=== PATIENT | female | born 1945 | race Caucasian/White ===

== ENCOUNTER 2016-04-28 16:28 | Inpatient (IN) | payer MEDICARE, OTHER ==
[~2016-04-28] VITALS: Ht 154.9 cm; Wt 79.3 kg
[2016-04-28] MEDS ORDERED: SODIUM CHLORIDE FLUSH 3 ML SYR IV PRN (17:20)
[2016-04-28] MEDS ORDERED: ACETAMINOPHEN 500 MG TAB (TYLENOL) PO ONE (17:20)
[2016-04-28] MEDS ORDERED: SODIUM CHLORIDE FLUSH 10 ML SYR IV PRN (17:20)
[2016-04-28 17:34] LABS: MEAN CORPUSCULAR HEMOGLOBIN 29.6 PG (26.0-34.0); MEAN CORPUSCULAR HGB CONC 35.1 g/dL (31.0-37.0); MEAN CORPUSCULAR VOLUME 84 FL (80-100); MEAN PLATELET VOLUME 12.2 FL (6.0-9.5); PLATELET COUNT 186 10^3uL (150-450); WHITE BLOOD COUNT 7.06 10^3uL (4.0-11.0)
[2016-04-28 17:41] LABS: ALBUMIN 3.6 g/dL (3.4-5.0); ANION GAP 18.8 MEQ/L (3-15); TOTAL PROTEIN 6.7 g/dL (6.4-8.5)
[2016-04-28 18:12] LABS: BAND NEUTROPHILS % 5 % (0-6); EOSINOPHILS % 0 % (0-4); LYMPHOCYTES # 1.4 #; MONOCYTES # 0.5 #; MONOCYTES % 7 % (3-11); RBC MORPH NORMAL (NORMAL); SEGMENTED NEUTROPHILS % 65 % (51-67); TOTAL CELLS COUNTED 100
--- NOTE | 2016-04-28 18:29 | NUR ---
to ct at 1814
[2016-04-28] MEDS ORDERED: INSULIN REGULAR 1 UNIT/0.01 ML DOSE IV ONE (19:25)
[2016-04-28 19:38] LABS: BILIRUBIN,URINE Negative (Negative); CLARITY,URINE Clear; COLOR,URINE Yellow; GLUCOSE, URINE (UA) 3+ (Negative); LEUKOCYTE ESTERASE ,URINE Trace (Negative); PH,URINE 5.5 (5.0 - 8.0); UROBILINOGEN,URINE 0.2 mg/dL (0.2-1.0)
[2016-04-28 19:47] LABS: URINE CENTRIFUGED VOLUME 12 mL
--- NOTE | 2016-04-28 21:32 | NUR ---
NOTIFIED MAINTENANCE TECHNICIAN 3RD SHIFT OF ADMIT
[2016-04-28] MEDS ORDERED: DOCUSATE SODIUM 100 MG (COLACE) CAP PO PRN (21:40)
[2016-04-28] MEDS ORDERED: POTASSIUM CL IVPB 50 ML IV PRN (21:40)
[2016-04-28] MEDS ORDERED: GLUCAGON EMERGENCY 1 MG/KIT IM PRN (21:40)
[2016-04-28] MEDS ORDERED: POLYETHYLENE GLYCOL 17 GM (MIRALAX) PACKET PO PRN (21:40)
[2016-04-28] MEDS ORDERED: PROMETHAZINE HCL INJ 12.5 MG in SODIUM CHLORIDE 25 ML IV PRN (21:40)
[2016-04-28] MEDS ORDERED: DEXTROSE ORAL GEL (GLUTOSE 40%) 15 GM TUBE PO PRN (21:40)
[2016-04-28] MEDS ORDERED: INSULIN REGULAR VIAL 100 UNIT in SODIUM CHLORIDE 100 ML IV SCH (21:40)
[2016-04-28] MEDS ORDERED: ACETAMINOPHEN 325 MG TAB (TYLENOL) PO PRN (21:40)
[2016-04-28] MEDS ORDERED: CALCIUM CARBONATE CHEWABLE 300 MG (TUMS) TABLET PO PRN (21:40)
[2016-04-28] MEDS ORDERED: IBUPROFEN 600 MG (MOTRIN) TAB PO PRN (21:40)
[2016-04-28] MEDS ORDERED: MAG HYDROX/AL HYDROX/SIMETH 200-200-20/5 ML (MAG-AL PLUS) 30 ML UDC PO PRN (21:40)
[2016-04-28] MEDS ORDERED: morphine INJ 4 MG/ML 1 ML SYRINGE IV PRN (21:40)
[2016-04-28] MEDS ORDERED: ONDANSETRON 4 MG (ZOFRAN) ORAL DISSOLVE TAB PO PRN (21:40)
[2016-04-28] MEDS ORDERED: MAGNESIUM HYDROXIDE 80MG/ML (MILK OF MAGNESIA) 30 ML UDC PO PRN (21:40)
[2016-04-28] MEDS ORDERED: ONDANSETRON 2 MG/ML (Z0FRAN) 2 ML VIAL IV PRN (21:40)
[2016-04-28] MEDS ORDERED: DEXTROSE 50% 25 GM/50 ML SYRINGE IV PRN ×3 (21:40)
[2016-04-28] MEDS ORDERED: SODIUM CHLORIDE 100 ML ONE (22:02)
[2016-04-28] MEDS ORDERED: INSULIN REGULAR 1 UNIT/0.01 ML DOSE ONE (22:04)
[2016-04-28 22:15] VITALS: BP 130/65
--- NOTE | 2016-04-28 22:15 | NUR ---
Pt admitted to room 342 for DKA and Influenza B from ER. Pt transferred to room via wheelchair. Pt was able to transfer to bed with minimal assist. Pt is alert and oriented, reports general discomfort all over from a recent fall on Wednesday. Pt is accompanied by daughter. Dr. Garner arrives shortly after admission to see pt. BGM obtained at admission time was 334. Insulin drip initiated at 11 units/hr.
[2016-04-28] MEDS ORDERED: ALBUTEROL 0.083% NEB SOLUTION 2.5 MG/3 ML VIAL INH PRN (22:45)
[2016-04-28 23:00] VITALS: BP 119/52
[2016-04-28 23:20] VITALS: BP 119/52
[2016-04-29] VITALS (15 sets, daily range): BP systolic 92–137; BP diastolic 44–76
[2016-04-29] MEDS: D5 1/2 NS W/KCL 20 MEQ/L 1,000 ML IV SCH ×2 (00:39→05:46)
--- NOTE | 2016-04-29 00:45 | NUR ---
Pt chooses to have a Doe catheter rather than use a bedpan. States she also has some incontinence and wears a pad in her underwear. Doe catheter inserted using sterile technique with no difficulties. Return of clear yellow urine, approximately 300 cc. Pt tolerated well. Denied other needs.
[2016-04-29 01:27] LABS: ALBUMIN 2.7 g/dL (3.4-5.0); PHOSPHORUS 2.1 mg/dL (2.4-4.9)
[2016-04-29] MEDS ORDERED: POTASSIUM PHOSPHATE 15 MM in SODIUM CHLORIDE 250 ML IV ONE (02:00)
[2016-04-29] MEDS ORDERED: GLUCAGON EMERGENCY 1 MG/KIT IM PRN ×2 (02:05→09:17)
[2016-04-29] MEDS ORDERED: DEXTROSE ORAL GEL (GLUTOSE 40%) 15 GM TUBE PO PRN ×2 (02:05→08:55)
[2016-04-29] MEDS ORDERED: DEXTROSE 50% 25 GM/50 ML SYRINGE IV PRN ×4 (02:05→09:16)
[2016-04-29 04:47] LABS: ALBUMIN 2.6 g/dL (3.4-5.0); ANION GAP 9.6 MEQ/L (3-15); PHOSPHORUS 3.5 mg/dL (2.4-4.9)
[2016-04-29] MEDS ORDERED: PANTOPRAZOLE 40 MG (PROTONIX) TAB PO SCH (07:00)
--- NOTE | 2016-04-29 07:15 | NUR ---
Reports "torture due to all the lines - slept poorly" - see ICU assessment - on bedpan for BM "not suppose to be out of bed that is what Dr Garner said"
[2016-04-29] MEDS ORDERED: INSULIN LISPRO 1 UNIT/0.01 ML (HUMALOG) DOSE SC SCH ×2 (07:30→08:00)
--- NOTE | 2016-04-29 07:52 | NUR ---
Pt instructed on Incentive Spirometry, She is reluctant due to her expecting a cough with deep breathing which does happen with each attempt in the IS. 1500 ml x 3 with good effort, moderate technique and no breath hold. SPO2 95% on 2 l/min NC.
--- NOTE | 2016-04-29 07:55 | NUR ---
Pt instructed on Incentive Spirometry. She has a good understanding of the technique and reason behind therapy, but is reluctant to do it because if induced cough. Performed x5 x 1500 ml with cough stopping inhalation each time.
[2016-04-29] MEDS ORDERED: NS FLUSH 10 ML PRN IV (08:00)
[2016-04-29] MEDS ORDERED: NS FLUSH 3 ML PRN IV (08:00)
[2016-04-29 08:17] LABS: BASOPHILS % (AUTO) 0 % (0-2); EOSINOPHILS % (AUTO) 0 % (0-4); LYMPHOCYTES # (AUTO) 1.9 X10^3; MEAN CORPUSCULAR HEMOGLOBIN 29.8 PG (26.0-34.0); MEAN CORPUSCULAR HGB CONC 34.5 g/dL (31.0-37.0); MEAN CORPUSCULAR VOLUME 86 FL (80-100); MEAN PLATELET VOLUME 10.6 FL (6.0-9.5); MONOCYTES # (AUTO) 0.4 X10^3; MONOCYTES % (AUTO) 8 % (3-11); NEUTROPHILS # (AUTO) 2.8 X10^3; NEUTROPHILS % (AUTO) 55 % (51-67); PLATELET COUNT 153 10^3uL (150-450); WHITE BLOOD COUNT 5.05 10^3uL (4.0-11.0)
[2016-04-29 08:30] LABS: ALBUMIN 2.8 g/dL (3.4-5.0); ANION GAP 11.1 MEQ/L (3-15); PHOSPHORUS 3.3 mg/dL (2.4-4.9)
--- NOTE | 2016-04-29 08:45 | NUR ---
PT ambulated patient in [place] [facility] -reports X2 dizzy episodes
--- NOTE | 2016-04-29 08:51 | NUR ---
NUTRITION ASSESSMENT Level 1 Patient: Luzma Dover Age/Sex: 70/F Date Screened: 04-29-16 Weight: 181.2#/82.4 kg Height: 61 inches Primary Diagnosis: DKA Diet Order: CL Relevant labs: sodium 134, glucose 356 (499 on admission), Hgb A1c >14.0, C-Peptide (pending), insulin level (pending) Food allergies: N Nutrition Assessment Criteria Age over 80: N Body Mass Index (BMI) under 19: N Admission Screening Indicates Risk? 3 points Moderate/High Risk Diagnosis: 6 points TPN or PPN: N NPO or clear liquid diet: Yes Serum Glucose <70 or >180: 3 points Hgb A1c >6.7: 3 points Total: 15 points Risk Screen: __ Patient at low nutritional risk based on available data; reevaluate in 5-7 days __ Patient at moderate nutritional risk based on available data; reevaluate in 3-5 days _X_ Patient at high nutritional risk; complete Nutrition Assessment within 48 hours of admission.
[2016-04-29] MEDS ORDERED: POLYETHYLENE GLYCOL 17 GM (MIRALAX) PACKET PO PRN (09:00)
[2016-04-29] MEDS ORDERED: OSELTAMIVIR (TAMIFLU) 75 MG CAP PO SCH (09:00)
[2016-04-29] MEDS ORDERED: MAGNESIUM HYDROXIDE 80MG/ML (MILK OF MAGNESIA) 30 ML UDC PO PRN (09:00)
[2016-04-29] MEDS ORDERED: NS FLUSH 3 ML DAILY IV SCH (09:00)
[2016-04-29] MEDS ORDERED: ENOXAPARIN 40 MG/0.4 ML (LOVENOX) SYR SC SCH (09:00)
[2016-04-29] MEDS ORDERED: DOCUSATE SODIUM 100 MG (COLACE) CAP PO PRN (09:00)
[2016-04-29] MEDS ORDERED: PROMETHAZINE HCL INJ 12.5 MG in SODIUM CHLORIDE 25 ML IV PRN (09:14)
[2016-04-29] MEDS ORDERED: CALCIUM CARBONATE CHEWABLE 300 MG (TUMS) TABLET PO PRN (09:15)
[2016-04-29] MEDS ORDERED: ALBUTEROL 0.083% NEB SOLUTION 2.5 MG/3 ML VIAL INH PRN (09:15)
[2016-04-29] MEDS ORDERED: IBUPROFEN 600 MG (MOTRIN) TAB PO PRN (09:17)
[2016-04-29] MEDS ORDERED: MAG HYDROX/AL HYDROX/SIMETH 200-200-20/5 ML (MAG-AL PLUS) 30 ML UDC PO PRN (09:18)
[2016-04-29] MEDS ORDERED: ONDANSETRON 4 MG (ZOFRAN) ORAL DISSOLVE TAB PO PRN (09:19)
[2016-04-29] MEDS ORDERED: ONDANSETRON 2 MG/ML (Z0FRAN) 2 ML VIAL IV PRN (09:19)
[2016-04-29] MEDS ORDERED: SODIUM CHLORIDE FLUSH 3 ML SYR IV PRN (09:20)
[2016-04-29] MEDS ORDERED: SODIUM CHLORIDE FLUSH 10 ML SYR IV PRN (09:20)
[2016-04-29] MEDS ORDERED: morphine INJ 4 MG/ML 1 ML SYRINGE IV PRN (09:22)
--- NOTE | 2016-04-29 09:48 | NUR ---
NUTRITION ASSESSMENT Level II Patient: Luzma Dover Age/Sex: 70/F Date Assessed: 04-29-16 ASSESSMENT Pertinent History: Patient admitted with DKA and screened at high nutritional risk secondary to diagnosis with unintentional weight loss in the past month. PMHx includes diabetes and HTN. She has had increased thirst with hyperglycemia. Of note, pt.s Hgb A1c has been well controlled over the past 5 years, ranging from 5.9-6.7, and was 6.6 most recently in 2015. Now it has shot up to >14.0; physician has ordered C-peptide and insulin levels to check if she is no longer making insulin. Pt. reports 22# weight loss in the past month with this illness. No c/o nausea or vomiting this morning. Meds/Nutrition: Protonix, Lantus, Humalog Weight: 181.2#/82.4 kg Height: 61 inches Body Mass Index (BMI): 34.3 [place] Body Weight : 105#/47.7 kg % IBW: 172% GASTROINTESTINAL Appetite: good, eating 100% Diet Order: CL Unintentional loss of >10 lbs. in 3 months: Yes Difficult to chew/swallow: N Diabetes: Yes Relevant Labs: sodium 134, glucose 356 (499 on admission), Hgb A1c >14.0, C-Peptide (pending), insulin level (pending) Calculations for Nutritional Assessment Estimated calorie needs: 22-25 kcals/kg = 1,800-2,050 kcals Estimated protein needs: 1.0-1.2 g/kg ABW = 56-67 g./day DIAGNOSIS 1. Nutrition Diagnosis: Altered nutrition-related lab values (glucose) related to endocrine dysfunction as evidenced by A1c with sudden spike >14.0 after being <6.7 for the past 5 years and admission with DKA. NUTRITIONAL INTERVENTION Goal: Patient will receive adequate nutrition to meet her needs. Plan: Will monitor tolerance to diet as advanced and intake for adequacy. Medium diabetic diet would be appropriate when advanced past CL. Insulin has been initiated; expect this to be long-term. MONITORING & EVALUATION __ Monitor patients menu selections __ Monitor patients food intake per nursing notes _X_ Monitor NPO/clear liquid days _X_ Monitor lab values __ Monitor I&O __ Other
--- NOTE | 2016-04-29 09:55 | NUR ---
Condition report called to KONSTANTIN OTOOLE
[2016-04-29] MEDS: ENOXAPARIN 40 MG/0.4 ML (LOVENOX) SYR SC SCH (09:57)
[2016-04-29] MEDS: ASPIRIN 81 MG CHEW (CHILDREN'S ASA) PO SCH (09:57)
[2016-04-29] MEDS: SODIUM CHLORIDE FLUSH 3 ML SYR IV SCH (09:58)
[2016-04-29] MEDS: OSELTAMIVIR (TAMIFLU) 75 MG CAP PO SCH ×2 (09:58→21:43)
--- NOTE | 2016-04-29 10:00 | NUR ---
IV fluids DC'd - SL flushed
[2016-04-29] MEDS ORDERED: ZINC OXIDE OINTMENT (DESITIN) 56.7 GM TUBE TOP PRN (10:30)
--- NOTE | 2016-04-29 10:30 | NUR ---
Patient transferred to room 309 from ICU.
--- NOTE | 2016-04-29 12:05 | NUR ---
Doe catheter DC'd per order.
[2016-04-29] MEDS: INSULIN LISPRO 1 UNIT/0.01 ML (HUMALOG) DOSE SC SCH ×5 (12:57→21:43)
[2016-04-29] MEDS: ACETAMINOPHEN 325 MG TAB (TYLENOL) PO PRN (13:12)
--- NOTE | 2016-04-29 13:39 | NUR ---
Called Vandana to discuss the patient's consultation. She plans to educate the patient tomorrow morning.
--- NOTE | 2016-04-29 15:00 | NUR ---
Patient has voided 200 cc's since madhuri was DC'd. Attempted to give education regarding insulin and changes in medications but the patient was in denial about her condition.
--- NOTE | 2016-04-29 15:02 | NUR ---
MED REC COMPLETED-current med list obtained from Ext Med History application, PCP medication listing and patient interview. Conducted by Janiya Jacques, PharmD Candidate 2017.
[2016-04-29 15:33] LABS: ALBUMIN 2.6 g/dL (3.4-5.0); ANION GAP 11.5 MEQ/L (3-15); PHOSPHORUS 1.8 mg/dL (2.4-4.9)
[2016-04-29] MEDS ORDERED: POTASSIUM PHOSPHATE 21 MM in SODIUM CHLORIDE 250 ML IV ONE (16:50)
[2016-04-29] MEDS ORDERED: SODIUM CHLORIDE 100 ML ONE (17:56)
[2016-04-29] MEDS ORDERED: PROMETHAZINE/CODEINE SYRUP 6.25MG-10MG/5ML (PHENERGAN W/COD) UDC PO PRN (18:40)
--- NOTE | 2016-04-29 19:51 | NUR ---
Pt is resting in bed and is on droplet precautions for positive influenza. Pt requested a sponge bath, Luana TAN explained we do not have sponges to give sponge baths, but that she could fill a basin with warm water and get some wash clothes for her. Pt told her she was promised a sponge bath. While Luana MADDOX was explaining that she could also assist her to the shower room using the shower chair, the patient turned her room light off and told her never mind. IV is infusing without difficulty at this time. Call light is in reach, bed alarm is on, will continue to monitor.
[2016-04-29] MEDS ORDERED: INSULIN GLARGINE 1 UNIT/0.01ML (LANTUS) DOSE SC SCH (21:00)
[2016-04-29] MEDS: INSULIN GLARGINE 1 UNIT/0.01ML (LANTUS) DOSE SC SCH (21:43)
[2016-04-30 00:52] VITALS: BP 172/73
--- NOTE | 2016-04-30 04:42 | NUR ---
Pt is resting in bed asleep, has been up to restroom during the night, has denied pain or discomfort during this shift. Call light is in place, tab alarm on, will continue to monitor.
[2016-04-30] MEDS ORDERED: PANTOPRAZOLE 40 MG (PROTONIX) TAB PO ONE (05:23)
[2016-04-30] MEDS: PANTOPRAZOLE 40 MG (PROTONIX) TAB PO SCH (05:30)
[2016-04-30 06:09] LABS: MEAN CORPUSCULAR HEMOGLOBIN 29.7 PG (26.0-34.0); MEAN CORPUSCULAR HGB CONC 34.4 g/dL (31.0-37.0); MEAN CORPUSCULAR VOLUME 86 FL (80-100); MEAN PLATELET VOLUME 10.7 FL (6.0-9.5); PLATELET COUNT 184 10^3uL (150-450); WHITE BLOOD COUNT 4.57 10^3uL (4.0-11.0)
[2016-04-30 06:39] LABS: BAND NEUTROPHILS % 0 % (0-6); EOSINOPHILS % 1 % (0-4); LYMPHOCYTES # 2.6 #; MONOCYTES # 0.3 #; MONOCYTES % 7 % (3-11); RBC MORPH NORMAL (NORMAL); SEGMENTED NEUTROPHILS % 35 % (51-67); TOTAL CELLS COUNTED 100
[2016-04-30 06:50] LABS: ALBUMIN 2.8 g/dL (3.4-5.0); ANION GAP 10.5 MEQ/L (3-15); PHOSPHORUS 2.8 mg/dL (2.4-4.9)
[2016-04-30 07:55] VITALS: BP 158/78
[2016-04-30 07:56] VITALS: BP_SYST 138; BP_SYST 142; BP_SYST 158; BP_DIAS 78; BP_DIAS 79; BP_DIAS 80
[2016-04-30] MEDS: OSELTAMIVIR (TAMIFLU) 75 MG CAP PO SCH ×2 (08:33→20:14)
[2016-04-30] MEDS: ENOXAPARIN 40 MG/0.4 ML (LOVENOX) SYR SC SCH (08:33)
[2016-04-30] MEDS: INSULIN LISPRO 1 UNIT/0.01 ML (HUMALOG) DOSE SC SCH ×7 (08:33→21:00)
[2016-04-30] MEDS: ASPIRIN 81 MG CHEW (CHILDREN'S ASA) PO SCH (08:33)
[2016-04-30] MEDS: SODIUM CHLORIDE FLUSH 3 ML SYR IV SCH (09:00)
--- NOTE | 2016-04-30 09:35 | NUR ---
Nutrition Follow Up: Visited with pt. and daughter re: blood sugars and the need for insulin. Pt. stated that in the past week, in addition to becoming very ill her best friend also . Overall, she said things have been very rough emotionally and she wished the nurses would give me time to process this. However, she also stated she feels better this morning and she was pleasant and engaged in conversation with me. I said she must have been shocked when she saw her blood sugars were so high after being well controlled the past few years, and pt. said yes. She has a glucometer at home but has not needed to check her sugars because they were always normal. Pt.'s daughter stated that she eats pretty healthy, with lots of fresh fruit and vegetables and low sugar intake. She has an occasional diet soda but never sugary beverages. I explained that high blood sugars are sometimes the result of inadequate insulin rather than eating the wrong things, and assured her that she isn't necessarily doing anything wrong, its just that her body needs more help. Pt. was receptive to this. I also encouraged her to check her sugar regularly at home but to have it mean something--in other words, use the numbers to further her understanding of how her food intake is impacting her blood sugars, or if the insulin dose is adequate. We discussed that this approach puts her in charge of her diabetes, which pt. responded to very positively. Pt. was very nervous about the idea of giving herself injections, but she said she just needs a little more time to get used to the idea. She did agree to learn how to draw up the syringe with insulin for lunch today, though she didn't think she could inject herself at lunch yet. She and her daughter are aware that she can't go home until she demonstrates the ability to do things independently, so this is motivating for her. Pt. was not ready to visit in-depth about possible dietary changes; recommend she be referred for outpatient counseling to more thoroughly address this. Weight today: 176.4#/80.2 kg--this is down 4.8# since yesterday Labs: glucose 193 this morning 1. Notified RN that pt. is agreeable to learning how to draw up her insulin syringe at lunch today. 2. Gave my contact info. to pt. and daughter for questions as they come up later.
[2016-04-30] MEDS: HYDROCHLOROTHIAZIDE 25 MG (HCTZ) TAB PO SCH (10:22)
[2016-04-30] MEDS: meTOprolol TARTRATE 25 MG (LOPRESSOR) TABLET PO SCH ×2 (10:22→18:40)
[2016-04-30] MEDS: ACETAMINOPHEN 325 MG TAB (TYLENOL) PO PRN ×2 (10:22→20:19)
[2016-04-30] MEDS: ATORVASTATIN 10 MG (LIPITOR) TABLET PO SCH (10:22)
[2016-04-30] MEDS: lisINopril 20 MG (PRINIVIL) TABLET PO SCH (10:22)
[2016-04-30] MEDS: CEPHALEXIN 500 MG (KEFLEX) CAPSULE PO SCH ×2 (10:22→20:14)
--- NOTE | 2016-04-30 13:00 | NUR ---
Pt educated on administration of insulin. Pt mamadou insulin up and administered injection herself with encouragement and instruction from this nurse. Pt tolerated this well. Informed pt that we would start instructing her on how to check her own blood sugars and administer her own insulin injections while she's here so she knows how to do them when she goes home.
--- NOTE | 2016-04-30 14:36 | NUR ---
MULTIDISCIPLINARY MTG/DR. LOFTON: Pt. admitted for DKA and influenza B. Pt. is a type II diabetic. Pt. was placed on a basal/bolus regimen and will be discharged on this regimen. Staff continues to educate Pt. on her diabetic care. Pt. is doing well and administering her own insulin while staff supervise. Pt. orthostasis has resolved. She has been restarted on her blood pressure medications. Pt. will possibly be discharged home tomorrow with home health services vs. skilled care.
[2016-04-30 15:38] VITALS: BP 119/72
--- NOTE | 2016-04-30 16:03 | NUR ---
Room air, no SVN tx's, IS on own, doing well.
--- NOTE | 2016-04-30 17:36 | NUR ---
Pt sitting up in chair at this time. Has endorsed feeling tired this shift, slept for most of the afternoon. Skin warm, dry, intact. Resprs nonlabored, even on RA. Daughter at bedside. Pt denies needs.
[2016-04-30 20:58] VITALS: BP_SYST 117; BP_SYST 122; BP_SYST 134; BP_DIAS 78; BP_DIAS 82; BP_DIAS 85
[2016-04-30] MEDS: INSULIN GLARGINE 1 UNIT/0.01ML (LANTUS) DOSE SC SCH (21:16)
[2016-05-01 00:05] VITALS: BP 142/88
[2016-05-01] MEDS: PANTOPRAZOLE 40 MG (PROTONIX) TAB PO SCH (06:05)
[2016-05-01] MEDS: INSULIN LISPRO 1 UNIT/0.01 ML (HUMALOG) DOSE SC SCH ×6 (07:14→18:24)
[2016-05-01 07:35] VITALS: BP 136/62
[2016-05-01] MEDS: meTOprolol TARTRATE 25 MG (LOPRESSOR) TABLET PO SCH ×2 (08:28→18:25)
[2016-05-01] MEDS: HYDROCHLOROTHIAZIDE 25 MG (HCTZ) TAB PO SCH (09:00)
[2016-05-01] MEDS: ATORVASTATIN 10 MG (LIPITOR) TABLET PO SCH (09:00)
[2016-05-01] MEDS: CEPHALEXIN 500 MG (KEFLEX) CAPSULE PO SCH (09:00)
[2016-05-01] MEDS: OSELTAMIVIR (TAMIFLU) 75 MG CAP PO SCH (09:00)
[2016-05-01] MEDS: ENOXAPARIN 40 MG/0.4 ML (LOVENOX) SYR SC SCH (09:00)
[2016-05-01] MEDS: ASPIRIN 81 MG CHEW (CHILDREN'S ASA) PO SCH (09:00)
[2016-05-01] MEDS: SODIUM CHLORIDE FLUSH 3 ML SYR IV SCH (09:00)
[2016-05-01] MEDS: lisINopril 20 MG (PRINIVIL) TABLET PO SCH (09:00)
[2016-05-01] MEDS: ACETAMINOPHEN 325 MG TAB (TYLENOL) PO PRN (16:53)
--- NOTE | 2016-05-01 17:40 | NUR ---
Continuing education for diabetes management this shift, pt draws up own insulin and administers her own injections. Pt c/o CHOU requesting Tylenol around 1700, administered at that time. Skin warm, dry, intact. Resprs nonlabored, even on RA. SL removed with catheter tip intact. Pt denies needs.
--- NOTE | 2016-05-01 18:34 | NUR ---
Discharge instructions reviewed with patient and daughter, questions answered, both demonstrate understanding. Belongings gathered. Skin warm, dry, intact. Resprs nonlabored, even on RA. Pt dismissed at this time via w/c accompanied by daughter and Anne Sanchez CNA. Pt appreciative of cares.
[2016-05-01] MEDS ORDERED: INSULIN GLARGINE 1 UNIT/0.01ML (LANTUS) DOSE SC SCH (21:00)
== END 2016-05-01 18:33 | disposition home or self-care (01) | DRG 638 ==
LOC: ED 16:29 → ICU 21:34 → MED/SURG 04-29 10:30
PROVIDERS: ADMIT Internal Medicine; ATTEND Internal Medicine
DX: E13.10 Other specified diabetes mellitus with ketoacidosis without coma (principal); N39.0 Urinary tract infection, site not specified; J10.1 Influenza due to other identified influenza virus with other respiratory manifestations; E86.0 Dehydration; I95.1 Orthostatic hypotension; I10 Essential (primary) hypertension; E78.5 Hyperlipidemia, unspecified; K59.00 Constipation, unspecified; K21.9 Gastro-esophageal reflux disease without esophagitis; B95.1 Streptococcus, group B, as the cause of diseases classified elsewhere; B97.89 Other viral agents as the cause of diseases classified elsewhere; Z79.84 Long term (current) use of oral hypoglycemic drugs; Z79.82 Long term (current) use of aspirin; Z91.81 History of falling
CPT/HCPCS: 36415; 70450; 71101; 72125; 72170; 73562; 76376; 80053; 80069; 81003; 81015; 82009; 82550; 83036; 83525; 83735; 84100; 84443; 84484; 84681; 85007; 85025; 85027; 86140; 87040; 87088; 87147; 87486; 87581; 87633; 87798; 93005; 93010; 96360; 96361; 99285

== ENCOUNTER → 2016-05-07 | Outpatient (REF) | payer MEDICARE, OTHER ==
[2016-05-07 12:46] LABS: BASOPHILS % (AUTO) 1 % (0-2); EOSINOPHILS # (AUTO) 0.1 10^3uL; EOSINOPHILS % (AUTO) 1 % (0-4); LYMPHOCYTES # (AUTO) 1.8 X10^3; MEAN CORPUSCULAR HEMOGLOBIN 29.8 PG (26.0-34.0); MEAN CORPUSCULAR HGB CONC 33.3 g/dL (31.0-37.0); MEAN CORPUSCULAR VOLUME 89 FL (80-100); MEAN PLATELET VOLUME 10.5 FL (6.0-9.5); MONOCYTES # (AUTO) 0.7 X10^3; MONOCYTES % (AUTO) 9 % (3-11); NEUTROPHILS # (AUTO) 5.3 X10^3; NEUTROPHILS % (AUTO) 66 % (51-67); PLATELET COUNT 487 10^3uL (150-450); WHITE BLOOD COUNT 8.05 10^3uL (4.0-11.0)
[2016-05-07 12:57] LABS: ALBUMIN 3.4 g/dL (3.4-5.0); CALCULATED IONIZED CALCIUM 4.5 mg/dL (3.8-4.6); TOTAL PROTEIN 6.2 g/dL (6.4-8.5)
[2016-05-07 13:02] LABS: CLARITY,URINE Clear; GLUCOSE, URINE (UA) Negative (Negative); LEUKOCYTE ESTERASE ,URINE Trace (Negative); UROBILINOGEN,URINE 0.2 mg/dL (0.2-1.0)
[2016-05-07 13:08] LABS: BILIRUBIN,URINE 1+ (Negative); COLOR,URINE Dark Yellow
[2016-05-07 13:12] LABS: RBC,URINE 0-2 /HPF; URINE CENTRIFUGED VOLUME <10mL Unspun
== END ==
LOC: LAB 12:28
PROVIDERS: ATTEND Physician Assistant Surgical
DX: E11.9 Type 2 diabetes mellitus without complications (principal); N30.00 Acute cystitis without hematuria
CPT/HCPCS: 80053; 81003; 81015; 85025; 87077; 87088; 87186

== ENCOUNTER → 2016-06-03 | Outpatient (REF) | payer MEDICARE, OTHER ==
[~2016-06-03] MED LIST: AC500T PO; ACET325T38 PO; ASPI-860 PO; ATOR20TA PO; BEE580CA; BLOO1EAC87 MC; CEPH-331 PO; CHLO1CAP; COLE625T PO; CRAN200C2; DICL100G13 TOP; DICL50TA4 PO; DOCU100T2 PO; GLIM2TAB PO; HYDR-3702 PO; HYDR-3811 PO; INSU100V2 SC; INSU100V8 SC; LANC1EAC MC; LISI1TAB10 PO; METO-270 PO; METO25TA60 PO; MIRALAX 17 GM P17 GM PO; MULT-1026 PO; MULT-954 PO; OMEP20CA12 PO; OSLT75C PO; SYRI-259 MC; TESTSTRIPS MC; UVA URSI
[2016-06-03 13:09] LABS: BILIRUBIN,URINE Negative (Negative); CLARITY,URINE Clear; GLUCOSE, URINE (UA) Negative (Negative); LEUKOCYTE ESTERASE ,URINE Trace (Negative); UROBILINOGEN,URINE 0.2 mg/dL (0.2-1.0)
[2016-06-03 13:23] LABS: COLOR,URINE Dark Yellow; URINE CENTRIFUGED VOLUME 12 mL
[2016-06-03 13:29] LABS: RBC,URINE 0-2 /HPF
== END ==
LOC: LAB 12:14
PROVIDERS: ATTEND Physician Assistant Surgical
DX: E11.9 Type 2 diabetes mellitus without complications (principal); N39.498 Other specified urinary incontinence
CPT/HCPCS: 81003; 81015; 83036; 87088; 87147

== ENCOUNTER → 2016-06-18 | Outpatient (CLI) | payer MEDICARE, OTHER ==
[2016-06-18 15:17] LABS: ALBUMIN 4.1 g/dL (3.4-5.0); TOTAL PROTEIN 7.1 g/dL (6.4-8.5)
[2016-06-18 15:56] LABS: BASOPHILS % (AUTO) 1 % (0-2); EOSINOPHILS # (AUTO) 0.1 10^3uL; EOSINOPHILS % (AUTO) 2 % (0-4); LYMPHOCYTES # (AUTO) 1.9 X10^3; MEAN CORPUSCULAR HEMOGLOBIN 29.3 PG (26.0-34.0); MEAN CORPUSCULAR HGB CONC 32.1 g/dL (31.0-37.0); MEAN CORPUSCULAR VOLUME 91 FL (80-100); MEAN PLATELET VOLUME 10.7 FL (6.0-9.5); MONOCYTES # (AUTO) 0.6 X10^3; MONOCYTES % (AUTO) 8 % (3-11); NEUTROPHILS # (AUTO) 4.7 X10^3; NEUTROPHILS % (AUTO) 64 % (51-67); PLATELET COUNT 299 10^3uL (150-450); WHITE BLOOD COUNT 7.33 10^3uL (4.0-11.0)
== END ==
LOC: LAB 14:37
PROVIDERS: ATTEND Family Medicine
DX: R79.89 Other specified abnormal findings of blood chemistry (principal)
CPT/HCPCS: 36415; 80076; 85025